=== PATIENT | male | born 1975 | race Caucasian/White ===

== ENCOUNTER 2017-01-19 12:44 | Emergency (ER) | payer OTHER ==
[~2017-01-19] VITALS: Ht 188 cm; Wt 95.5 kg
[~2017-01-19 12:44] MED LIST: ACTOS 45MG45 MG/TAB PO; ADVICOR 20 MG-51 TER PO; CLEOCIN HCL300 MG PO; DOXYCYCLINE 10100 MG PO; FISH OIL CONC1000 MG PO; FORTAMET1000 MG PO; INSLANT SQ; LANTUS100 U/ML SC; LEVAMIR SQ; LEVEMIR FLEXPEN SC; LISINOPRIL10 MG PO; NOVOLOG FLEX100 U/ML SC; ULTRAM 50MG TAB50 MG PO; ZESTRIL 5MG5 MG PO; ZOCOR 40MG40 MG PO; [UNRECOGNIZED DRUG - OTHER] PO
[2017-01-19 12:45] VITALS: BP 121/78; TEMP 97.7
[2017-01-19] MEDS ORDERED: DOXYCYCLINE 10100 MG PO (15:23)
[2017-01-19] MEDS ORDERED: LEVEMIR100 U/ML SQ (15:32)
[2017-01-19 15:34] VITALS: PULSE 88
== END 2017-01-19 15:34 | disposition home or self-care (01) ==
LOC: COL.ER 12:44
DX: S50.861A Insect bite (nonvenomous) of right forearm, initial encounter (principal); L08.9 Local infection of the skin and subcutaneous tissue, unspecified; E11.9 Type 2 diabetes mellitus without complications; M19.90 Unspecified osteoarthritis, unspecified site; F17.220 Nicotine dependence, chewing tobacco, uncomplicated; Z79.4 Long term (current) use of insulin

== ENCOUNTER 2019-09-30 20:09 | Emergency (ER) | payer OTHER ==
[~2019-09-30] VITALS: Ht 188 cm; Wt 97.7 kg
[~2019-09-30 20:09] MED LIST changes: +LEVEMIR100 U/ML SQ
[2019-09-30] MEDS ORDERED: PRINIVIL5 MG PO (20:46)
[2019-09-30] MEDS ORDERED: ZOCOR 40MG40 MG PO (20:46)
[2019-09-30 21:15] VITALS: BP 147/80; PULSE 74; TEMP 97.5
== END 2019-09-30 21:17 | disposition home or self-care (01) ==
LOC: COL.ER 20:09
DX: S90.31XA Contusion of right foot, initial encounter (principal); E11.9 Type 2 diabetes mellitus without complications; Z79.4 Long term (current) use of insulin; W18.2XXA Fall in (into) shower or empty bathtub, initial encounter

== ENCOUNTER 2021-02-01 15:58 | Outpatient (CLI) | payer OTHER ==
[~2021-02-01] VITALS: Ht 188 cm; Wt 93.1 kg
[~2021-02-01 15:58] MED LIST changes: +LEVEMIR FLEX100 U/ML SQ; -LEVEMIR100 U/ML SQ; +PRINIVIL5 MG PO
[2021-02-01 16:00] VITALS: BP 132/74; PULSE 79; TEMP 99.8
[2021-02-01 16:15] VITALS: BP 113/72; PULSE 81
[2021-02-01 16:30] VITALS: BP 132/74; PULSE 79
[2021-02-01 16:45] VITALS: PULSE 79
[2021-02-01 17:00] VITALS: BP 114/77; PULSE 82; TEMP 100.1
== END 2021-02-01 18:28 | disposition home or self-care (01) ==
LOC: EUO 15:58
DX: E11.9 Type 2 diabetes mellitus without complications (principal); U07.1 COVID-19
CPT/HCPCS: Q0244